=== PATIENT | female | born 1955 | race Two or more races ===

== ENCOUNTER 2016-11-15 07:23 | Day surgery (SDC) | payer OTHER ==
[2016-11-15] VITALS (18 sets, daily range): BP systolic 104–135; BP diastolic 57–74; PULSE 73–98; RESP 16–18; Ht 154.9 cm; Wt 56.0 kg
[~2016-11-15] VITALS: Ht 154.9 cm; Wt 56.0 kg
[~2016-11-15 07:23] MED LIST: ALPR0.5T6 PO; AMLO5TAB4 PO; ASPI-664 PO; ATEN50TA PO; CALC-176 PO; CEFAZOLIN 1 GM INJ ONE; IBUP800T25 PO; LANS30CA PO; OMEP40CA6 PO; SERT50TA PO; SIMV40TA2 PO
[2016-11-15] MEDS ORDERED: CEFAZOLIN 2 GM/50 ML (PMX) 50 ML IVPB ONE (10:00)
[2016-11-15] MEDS ORDERED: D5W-0.45 NACL + KCL 20 MEQ 1,000 ML IV SCH (10:00)
--- NOTE | 2016-11-15 12:00 | HPN ---
Date/Time of Note Date/Time of Note DATE: 11/15/16 TIME: 11:32 Interval H&P Admission Note Pt. seen H&P reviewed: No system changes Pt. seen H&P reviewed. No system changes (I attest that I have seen and examined the patient and reviewed the operation in detail, as well as its risks , benefits and alternatives of the operation). I attest that I have seen and examined the patient and reviewed in detail the operation, and its associated risks, benefits and alternative. I have answered all the patient's questions to the best of my ability and the patient wishes to proceed. Please refer to rest of electronic medical record for additional updates. RAY HERNANDEZ M.D. Nov 15, 2016 12:00
[2016-11-15] MEDS ORDERED: BUPIVACAINE 0.25%/EPI (SDV) 30 ML INJ ONE (12:05)
[2016-11-15] MEDS ORDERED: BUPIVACAINE 0.25%/EPI (SDV) 30 ML INJ INJ ONE (12:10)
[2016-11-15] MEDS ORDERED: ONDANSETRON 4 MG INJ ONE (12:25)
[2016-11-15] MEDS ORDERED: PROPOFOL 20 ML ONE (12:25)
[2016-11-15] MEDS ORDERED: KETOROLAC 30 MG INJ ONE (12:25)
[2016-11-15] MEDS ORDERED: MIDAZOLAM 1 MG/ML 2 ML INJ ONE (12:25)
[2016-11-15] MEDS ORDERED: FENTAnyl 50 MCG/ML VIAL ONE (12:26)
[2016-11-15] MEDS ORDERED: METOCLOPRAMIDE 10 MG INJ ONE (12:35)
[2016-11-15] MEDS ORDERED: EPHEDrine SULFATE 50 MG/5 ML SYG ONE (12:38)
[2016-11-15] MEDS ORDERED: BISACODYL 10 MG SUPP PR PRN (13:30)
[2016-11-15] MEDS ORDERED: MEPERIDINE 25 MG INJ IV PRN (13:30)
[2016-11-15] MEDS ORDERED: DIPHENHYDRAMINE 50 MG INJ IV PRN (13:30)
[2016-11-15] MEDS ORDERED: DOCUSATE SODIUM 100 MG CAP PO PRN (13:30)
[2016-11-15] MEDS ORDERED: HYDROCODONE/APAP (5/325) TAB PO PRN ×2 (13:30)
[2016-11-15] MEDS ORDERED: HYDROmorphONE (0.2 MG/ML) 10ML SYG IV PRN ×3 (13:30)
--- NOTE | 2016-11-15 13:36 | OPR ---
Date/Time of Note Date/Time of Note DATE: 11/15/16 TIME: 13:36 Operative Report Operative Findings [facility] INPATIENT OPERATIVE NOTE PLACE OF SERVICE: [facility] DATE OF SURGERY: 11/15/2016 PREOPERATIVE DIAGNOSIS: 1. 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 2. Anxiety 3. Hyperlipidemia 4. Hypertension POSTOPERATIVE DIAGNOSIS: 1. 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 2. Anxiety 3. Hyperlipidemia 4. Hypertension OPERATION: 1. Wire localized excision of right breast lesion area (partial lumpectomy) SURGEON: Ray Alvarez M.D. SPORTS TEAM MANAGER: None ANESTHESIA: General endotracheal tube anesthesia ANESTHESIOLOGIST: Siva Contreras M.D. BRIEF SUMMARY: An otherwise uncomplicated wire localized lumpectomy of right breast lesion was performed with findings of no palpable lesion and extreme finding postoperatively showing presence of clip and wire with adequate margins. BRIEF HISTORY: The patient is a very pleasant 61-year-old lady with comorbid issues of anxiety, hyperlipidemia, and hypertension who was diagnosed with a slight area of atypical papillary neoplasm on ultrasound-guided biopsy, which is not associated with a mass in the right breast at the 8 o'clock position, status post biopsy as above and clip placement. The patient certainly can benefit from surgical excision of this area under wire localization. I described the operation in detail including the risks, benefits, and alternatives and the reasoning behind my recommendation and answered all the patient's and her son's questions to the best of my ability. The patient and family appeared to understand and wished to proceed with surgery. For a detailed report of my consultation with patient and family, please refer to my separate consultation note. STATEMENT OF THE INFORMED CONSENT: The patient and family appeared to understand the risks of the operation to include, but not be limited to risk of postoperative pain and scar tissue, possible infection or bleeding requiring other interventions such as opening the wound, placement of drainage catheters, or other operative interventions; possible injury to surrounding to structures including bowel, bladder, bile duct, or blood vessels, or solid organs such as liver, kidney, or pancreas requiring other interventions or procedures; possible leakage of bowel from anastomotic sites or suture lines causing significant increase in morbidity and mortality and requiring multiple interventions including but not limited to, placement of drainage catheters, imaging studies, as well as operative interventions; possible other source of sepsis such as urinary tract infections or pneumonias, or other sources of potentially life threatening problems such as deep venous thrombus formation causing pulmonary embolism, myocardial arrhythmias and infarctions, and even . After careful consideration of all their options, the patient and family appeared to understand and wished to proceed with surgery. DESCRIPTION OF PROCEDURE: After obtaining informed consent, the patient was brought into the operating room and was placed in a normal supine position, where successful general endotracheal tube anesthesia was performed. Intravenous access was already in place and intravenous antimicrobials had been appropriately chosen and dosed prior to the operation. The patient's right breast skin was prepped and draped in the usual sterile fashion. We then called a surgical time-out where the patient's identification, date of , nature of the operation, allergies, presence of intravenous antimicrobials, presence of needed equipment, and any other concerns were reviewed and agreed upon by all members of the operating room team. We then started the operation by placing a 3 cm skin incision right above the area of exit of the wire localized wire with a scalpel and then did a lumpectomy using cautery to core out the soft tissue around the area of the wire all the way down to pectoralis major fascia. The edges of the specimen were marked in the usual standard fashion (short marking superior, long marking lateral and double marking deep) and postlumpectomy x-rays demonstrated presence of the needle as well as the previously placed clip in the middle of the specimen. Hemostasis was achieved, wounds were washed with copious amounts of normal saline and the cavity was made smaller using interrupted 4-0 Vicryl suture, and the skin was closed using running 4-0 Monocryl suture. Light dressing was then applied. At the end of the operation, both the sponge count and needle count were reportedly correct x2. The patient tolerated the procedure without any reported complications. ESTIMATED BLOOD LOSS: 5 ml BLOOD OR BLOOD PRODUCT TRANSFUSIONS: None to my knowledge. SPECIMENS: Right breast lumpectomy COMPLICATIONS: None. DISPOSITION: Recovery area. Disclaimer: Inadvertent spelling and grammatical errors are likely due to EHR/ dictation software use and do not reflect on the quality of delivered patient care. Also, please note that the electronic time recorded on this node does not necessarily reflect the actual time of the visit. RAY ALVAREZ M.D. Nov 15, 2016 13:36
== END 2016-11-15 15:45 | disposition home or self-care (01) ==
LOC: SDS 07:23
PROVIDERS: ATTEND Transplant Surgery
DX: N60.21 Fibroadenosis of right breast (principal); F41.9 Anxiety disorder, unspecified; E78.5 Hyperlipidemia, unspecified; I10 Essential (primary) hypertension
CPT/HCPCS: 19301; 86850; 86870; 86900; 86901; 88307; J0690; J1885; J2250; J2405; J2765; J3010; Z7512; Z7610

== ENCOUNTER 2016-11-28 10:51 | Outpatient (CLI) | payer OTHER ==
[~2016-11-28] VITALS: Ht 160 cm; Wt 55.5 kg
[~2016-11-28 10:51] MED LIST changes: -AMLO5TAB4 PO; -CEFAZOLIN 1 GM INJ ONE; -OMEP40CA6 PO
[2016-11-28 11:02] VITALS: Ht 160 cm; Wt 55.5 kg
[2016-11-28 11:03] VITALS: BP 131/62; PULSE 71; RESP 18
--- NOTE | 2016-11-28 12:15 | PN ---
Date/Time of Note Date/Time of Note DATE: 11/28/16 TIME: 12:07 Assessment/Plan Assessment/Plan Assessment/Plan [facility] Progress Note Date of Service: 11/28/16 Today's Impression & Plan: Overall doing well post op without major issues. No major wound problems. Reviewed path and significance (slight rise in chance of malignancy in the future). Emphasized importance of regular once a month self breast exams and annual routine breast follow up with Dr. Jimenez (with bilateral breast US and mammograms). No indication for acute surgical intervention. With above assessment, I've recommended the following for today: 1. F/u with PCP 2. F/u with us prn Thank you again for your great care of this very pleasant patient and wonderful family. If there are any questions, please feel free to call me at [phone]. TOTAL VISIT TIME: 20 minutes of which more than half was spent in [id number] discussion with the patient, possibly including family, as well as coordination of care between multiple physicians and providers. Disclaimer: Inadvertent spelling or grammatical errors are likely due to EHR/ dictation software use and do not reflect on the overall quality of patient care. Updated Clinical Summary: The patient is a very pleasant 61-year-old lady with comorbid issues of anxiety , hyperlipidemia, and hypertension who was diagnosed with a slight area of atypical papillary neoplasm on ultrasound-guided biopsy, which is not associated with a mass in the right breast at the 8 o'clock position, status post biopsy as above and clip placement. The patient certainly can benefit from surgical excision of this area under wire localization. 11/15/16: An otherwise uncomplicated wire localized lumpectomy of right breast lesion was performed with findings of no palpable lesion and extreme finding postoperatively showing presence of clip and wire with adequate margins. Pathology: MICROSCOPIC DIAGNOSIS: Right breast, lumpectomy: -- Intraductal papilloma with focal sclerosis and scattered calcifications. -- Needle biopsy site within the papilloma showing foreign body giant cell reaction and chronic inflammation. -- Papilloma is less than 0.1 cm from the closest (medial) margin. -- All other margins are well clear. -- There is no evidence of malignancy. Comorbidities: 1. 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 S/p wire localized excision of right breast lesion area (partial lumpectomy) 11/15/16 2. Anxiety 3. Hyperlipidemia 4. Hypertension Subjective: No major events or complaints; no major right breast pain and under control with medications; no incisional issues other than minor discomfort; no n/v/d; no sob or cp; + flatus; + BM and normal; + activity Objective: Vitals: See below Exam: GENERAL: On exam, the patient was sitting in a chair and appeared to be comfortable and in no acute distress. ABDOMEN: Soft, nontender and nondistended. There are no peritoneal signs or guarding. Right BREAST: Incision is clean, dry and intact without any evidence of erythema , edema, discharge, or other problems. SKIN: Skin appears to be pink and feels warm to touch. NEUROLOGIC: Patient is awake, alert, and follows commands appropriately. Exam/Review of Systems Vital Signs Vitals Vital Signs Date Time Temp Pulse Resp B/P Pulse Ox O2 Delivery O2 Flow Rate FiO2 11/28/16 11:03 99.0 71 18 131/62 95 Room Air RAY HERNANDEZ M.D. Nov 28, 2016 12:15
== END 2016-11-28 16:13 | disposition home or self-care (01) ==
LOC: HPC 10:51
PROVIDERS: ATTEND Transplant Surgery
DX: D05.11 Intraductal carcinoma in situ of right breast (principal); F41.9 Anxiety disorder, unspecified; E78.5 Hyperlipidemia, unspecified; I10 Essential (primary) hypertension
CPT/HCPCS: G0463